=== PATIENT | female | born 1960 | race Caucasian/White ===

== ENCOUNTER 2021-04-25 06:17 | Emergency (ER) | payer BC ==
[2021-04-25 06:28] VITALS: RESP 18; TEMP 98.3
--- NOTE | 2021-04-25 06:39 | ED ---
Lower Extremity Injury HPI - General Chief Complaint: Extremity Injury, Lower Stated Complaint: LT ankle injury Time Seen by Provider: 04/25/21 06:29 Source: patient, RN notes reviewed Mode of arrival: ambulatory Limitations: no limitations - History of Present Illness Initial Comments: 60-year-old female presents emergency Department chief complaint left ankle injury. Patient states around 11 PM last night she went to go out and states that she rolled her ankle on her shoes. Patient states she has left lateral ankle pain no prior fractures no paresthesias. Patient states it's swollen, painful to ambulate no other complaints noted - Related Data Allergies Allergy/AdvReac Type Severity Reaction Status Date / Time No Known Allergies Allergy Verified 04/25/21 06:28 Review of Systems ROS Statement: Those systems with pertinent positive or pertinent negative responses have been documented in the HPI. ROS Other: All systems not noted in ROS Statement are negative. Past Medical History Past Medical History: No Reported History History of Any Multi-Drug Resistant Organisms: None Reported Past Surgical History: No Surgical Hx Reported Past Psychological History: No Psychological Hx Reported Smoking Status: Never smoker Past Alcohol Use History: Daily Past Drug Use History: None Reported General Exam Limitations: no limitations General appearance: alert, in no apparent distress Head exam: Present: atraumatic, normocephalic, normal inspection Eye exam: Present: normal appearance, PERRL, EOMI. Absent: scleral icterus, conjunctival injection, periorbital swelling Respiratory exam: Present: normal lung sounds bilaterally. Absent: respiratory distress, wheezes, rales, rhonchi, stridor Cardiovascular Exam: Present: regular rate, normal rhythm, normal heart sounds. Absent: systolic murmur, diastolic murmur, rubs, gallop, clicks Extremities exam: Present: other (Left ankle there is swelling, tenderness the lateral malleolus region no foot tenderness no proximal tib-fib tenderness no medial malar tenderness) Skin exam: Present: warm, dry, intact, normal color. Absent: rash Course Vital Signs 04/25/21 06:25 Temperature 98.3 F Pulse Rate 69 Respiratory 18 Rate Blood Pressure 140/72 O2 Sat by Pulse 97 Oximetry Procedures - Orthopedic Splinting/Casting Injury #1 Side: left Lower Extremity Injury Location: short leg, ankle Lower Extremity Immobilizer: posterior splint, synthetic pre-padded splint Other Orthopedic Equipment: crutches Medical Decision Making - Medical Decision Making X-ray shows evidence of fibular fracture. Patient was splinted in a short leg, patient has crutches. Patient will follow-up with orthopedics A return parameters were discussed. Disposition Clinical Impression: Closed fracture of left distal fibula Disposition: HOME SELF-CARE Condition: Stable Instructions (If sedation given, give patient instructions): Leg Fracture (ED) Additional Instructions: Please return to the Emergency Department if symptoms worsen or any other concerns. Is patient prescribed a controlled substance at d/c from ED?: No Referrals: Kanchan Dan DO [Primary Care Provider] - 1-2 days Jaswinder Zhao MD [STAFF PHYSICIAN] - 1-2 days Time of Disposition: 06:50
[2021-04-25] MEDS ORDERED: ACET/COD 300 MG/30 MG STARTER PACK 6 TAB BTL PO STA (06:50)
[2021-04-25 07:08] VITALS: BP 145/95; PULSE 59
--- NOTE | 2021-04-25 07:35 | XR ---
EXAMINATION TYPE: XR ankle complete LT DATE OF EXAM: 04/25/2021 COMPARISON: NONE HISTORY: Pain TECHNIQUE: 3 views of the left ankle are submitted for evaluation. FINDINGS: Obliquely oriented fracture involving the lateral malleolus of the spine. Soft tissue swell ing identified. No additional fracture seen. Ankle mortise appears to be. IMPRESSION: 1. Obliquely oriented fracture lateral malleolus is noted.
== END 2021-04-25 06:58 | disposition home or self-care (01) ==
LOC: EC 06:17
DX: S82.832A Other fracture of upper and lower end of left fibula, initial encounter for closed fracture (principal); X50.1XXA Overexertion from prolonged static or awkward postures, initial encounter
CPT/HCPCS: 29515; 99283